=== PATIENT | female | born 1945 | race Caucasian/White ===

== ENCOUNTER 2017-02-19 14:31 | Day surgery (SDC) | payer OTHER ==
[2017-02-19 14:43] VITALS: BMI 21.9
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
[2017-02-19 16:33] LABS: BASOPHIL 1.6 % (0-2.0); EOSINOPHIL 2.6 % (0-4.5); MCH 29.7 pg (25.7-33.7); MCHC 33.3 g/dl (32.0-36.0); MEAN CELL VOLUME 89.4 fl (80-96); MEAN PLT VOLUME 8.6 fl (7.5-11.1); NEUTROPHILS 62.9 % (42.8-82.8); PLATELET COUNT 353 K/MM3 (134-434); RDW 16.7 % (11.6-15.6); WHITE BLOOD COUNT 8.1 K/mm3 (4.0-10.0)
[2017-02-19 17:26] LABS: INR 0.91 (0.82-1.09)
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
[2017-02-19] MEDS ORDERED: LIDOCAINE HCL 1%, 10 MG/ML (20ML VIAL) ONE (17:48)
[2017-02-19] MEDS ORDERED: HEPARIN NA (PORCINE) 5,000 UNITS/ML 1ML VIAL ONE (17:49)
[2017-02-19] MEDS ORDERED: MIDAZOLAM HCL 2 MG/2 ML SINGLE DOSE VIAL ONE (17:59)
[2017-02-19] MEDS ORDERED: PROPOFOL 20 ML ONE (18:01)
--- NOTE | 2017-02-19 18:47 | HP ---
[facility] H - Chief Complaint History of Present Illness: 71 yo woman ESRD on HD with right sided Permacath which is not functioning for dialysis. She requires catheter change. History Source: Patient Limitations to Obtaining History: No Limitations - Past Medical History Allergies/Adverse Reactions: Allergies Allergy/AdvReac Type Severity Reaction Status Date / Time codeine Allergy Verified 02/19/17 14:43 Cardiovascular: Yes: HTN Renal/: Yes: Renal Failure, Hemodialysis Endocrine: Yes: Diabetes Mellitus - Current Medications Current Medications: Home Medications Medication Instructions Recorded Allopurinol [Zyloprim -] 100 mg PO DAILY 02/19/17 Glipizide 5 mg PO DAILY 02/19/17 Losartan Potassium 50 mg PO DAILY 02/19/17 Metoprolol Tartrate 50 mg PO BID 02/19/17 Nifedipine ER [Procardia Xl -] 30 mg PO BID 02/19/17 Satellite Physical Exam - Physical Examination Vital Signs: Vital Signs Period Temp Pulse Resp BP Sys/James Pulse Ox Last 24 Hr 98.1 F-98.2 F 73-82 18-20 144-145/79-92 99-99 General Appearance: Alert & Oriented x3 ENT: Clear Lung: Clear to auscultation Heart: Regular rate & rhythm Abdomen: Soft Extremities: No edema Satellite Impression/Plan - Impression/Plan Impression: ESRD on HD. Malfunction of hemodialysis catheter Operative Procedure: Replacement of Permacath Date to be Performed: 02/19/17
[2017-02-19 19:00] LABS: ALBUMIN 3.6 g/dl (3.4-5.0); ANION GAP 13 (8-16); BILIRUBIN,TOTAL 0.3 mg/dL (0.2-1.0); CALCIUM 9.9 mg/dL (8.5-10.1); CO2 23 mmol/L (21-32); GLUCOSE,RANDOM 69 mg/dL (74-106); SGPT/ALT 18 U/L (12-78); TOT PROT 7.7 g/dl (6.4-8.2)
[2017-02-19 19:02] LABS: SGOT/AST 10 U/L (15-37)
[2017-02-19] MEDS ORDERED: ceFAZolin SODIUM 1 GM VIAL ONE (19:03)
[2017-02-19 19:05] LABS: ALK PHOS 126 U/L (45-117)
[2017-02-19] MEDS ORDERED: LIDOCAINE HCL/PF 2% SDV 5ML VIAL ONE (19:06)
[2017-02-19 19:07] LABS: CREATININE 7.7 mg/dL (0.55-1.02)
[2017-02-19] MEDS ORDERED: ceFAZolin SODIUM 1 GM VIAL IVPB ONE (19:08)
[2017-02-19] MEDS ORDERED: LIDOCAINE HCL 1%, 10 MG/ML (50 mL VIAL) IJ ONE ×2 (19:14)
[2017-02-19] MEDS ORDERED: POVIDONE-IODINE OINTMENT 10% - 28.4 GM TUBE ONE (19:18)
[2017-02-19] MEDS ORDERED: POVIDONE-IODINE OINTMENT 10% - 28.4 GM TUBE TP ONE (19:21)
[2017-02-19] MEDS ORDERED: PHENYLEPHRINE HCL 10 MG/1 ML SINGLE DOSE VIAL ONE (19:25)
--- NOTE | 2017-02-19 19:35 | OP ---
Operative Note - Note: Operative Date: 02/19/17 Pre-Operative Diagnosis: Malfunction Permacath Operation: Replacement of Permacath with balloon disruption of fibrin sheath Findings: Permacath with fibrin sheath in right atrium Implants: 23 cm Permacth, tip in SVC/RA junction Post-Operative Diagnosis: Same as Pre-op Surgeon: Seth Garsia Anesthesiologist/FURRIER APPRENTICE: Antonio Mcpherson Anesthesia: Fractional
[2017-02-19] MEDS ORDERED: ACETAMINOPHEN 325 MG TABLET (FP) PO PRN (19:36)
[2017-02-19] MEDS ORDERED: ONDANSETRON 4 MG/2 ML VIAL IVPUSH PRN (19:40)
[2017-02-19] MEDS ORDERED: ACETAMINOPHEN 325 MG TABLET (FP) ONE ×2 (20:20)
[2017-02-19 20:52] VITALS: BP 172/93; PULSE 74; TEMP 97.6
--- NOTE | 2017-02-21 09:28 | PATH ---
Surgical Pathology Report Patient Name: SAMMY WHEELER Med. Rec. #: [id number] /Age/Gender: 1945 (Age: 71) / F Account: [id number] Location: [facility] SURGICAL Taken: 02/19/2017 Received: 02/20/2017 Reported: 02/21/2017 Physicians: Seth Garsia M.D. 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 Electronically Signed Ghulam Abrams M.D. Gross Description Received fresh labeled "old permacath," is a 19 cm in length double lumen catheter. Separately received within the same container is a 22 cm in length portion of tubing. No soft tissue is present. No sections are submitted, gross only. 02/20/2017 saudi02/20/2017
--- NOTE | 2017-02-21 09:49 | EKG ---
Test Reason : Blood Pressure : / mmHG Vent. Rate : 077 BPM Atrial Rate : 077 BPM P-R Int : 142 ms QRS Dur : 082 ms QT Int : 404 ms P-R-T Axes : 063 047 070 degrees QTc Int : 457 ms NORMAL SINUS RHYTHM NORMAL ECG NO PREVIOUS ECGS AVAILABLE Confirmed by RADHAMES JOLLEY MD ([id number]) on 02/21/2017 9:49:28 AM Referred By: Confirmed By:RADHAMES JOLLEY MD
--- NOTE | 2017-02-23 22:42 | OP ---
DATE OF OPERATION: 02/19/2017 SURGEON: Seth Joyce M.D. PROCEDURE: Replacement of PermCath with balloon, disruption of fibrin sheath. PREOPERATIVE DIAGNOSIS: Malfunction of PermCath. POSTOPERATIVE DIAGNOSIS: Malfunction of PermCath. ANESTHESIA: Fractional. ANESTHESIOLOGIST: Antonio Mcpherson M.D. OPERATIVE FINDINGS: The previous PermCath tip was in the distal right atrium. After replacement, there appeared to be evidence of fibrin sheath around the catheter. OPERATIVE PROCEDURE: Following routine patient identification with side and site verification, intravenous sedation was established. The right chest was prepped with Betadine. The catheter was also prepped copiously with Betadine. Timeout was performed. 1% Xylocaine was infiltrated at the exit site of the catheter and the subcutaneous cuff was freed with sharp dissection. A stiff wire was passed through the lumen of the catheter, and the old catheter was removed. A new 19-cm tip to cuff length catheter was then advanced over the wire from the tip position at the juncture of the superior vena cava right atrium. Aspiration of the catheter was difficult with only intermittent flow. Therefore number 5 Marbin catheter was advanced to one of the lumens of the catheter and inflated. The catheter and balloon were then moved in and out of the patient to break up the fibrin sheath around the catheter. After removal of the balloon, the tip was repositioned in a similar location, and now there was free flow of blood with aspiration with a 20-mL syringe from both lumens. Catheter was filled with saline and then heparin solution and sutured to the exit site with 3-0 nylon. Sterile dressings were applied. Patient was taken to the recovery room in stable condition. SETH JOYCE M.D. STEVEN/[id number]
== END 2017-02-19 21:00 | disposition home or self-care (01) ==
LOC: JER 14:31 → JASU-SURG 19:39 → J8W 20:44 → JASU-SURG 21:00
PROVIDERS: ATTEND Surgery
PROC: 027V3ZZ Dilation of Superior Vena Cava, Percutaneous Approach (ICD-10-PCS; 2017-02-19)
PROC: 0J2TXYZ Change Other Device in Trunk Subcutaneous Tissue and Fascia, External Approach (ICD-10-PCS; principal; 2017-02-19 18:30)
DX: T82.898A Other specified complication of vascular prosthetic devices, implants and grafts, initial encounter (principal); I12.0 Hypertensive chronic kidney disease with stage 5 chronic kidney disease or end stage renal disease; N18.6 End stage renal disease; Z99.2 Dependence on renal dialysis
CPT/HCPCS: 36578; 36902; C1750; 36415; 71020-TC; 76000-TC; 80053; 85025; 85610; 86850; 86900; 86901; 88300-TC; 93005; 93010; 94760; 99283-25; J1644

== ENCOUNTER 2017-10-17 17:12 | Inpatient (IN) | payer OTHER ==
--- NOTE | 2017-10-17 17:32 | PDOC ---
Rapid Medical Evaluation Time Seen by Provider: 10/17/17 17:29 Medical Evaluation: Allergies Allergy/AdvReac Type Severity Reaction Status Date / Time codeine Allergy Verified 02/19/17 14:43 I have performed a brief in-person evaluation of this patient. The patient presents with a chief complaint of: perma cath of right chest was replaced early today. went to dialysis this afternoon and the catheter was not working. She did not have dialysis today Pertinent physical exam findings: catheter in right anterior chest I have ordered the following: labs The patient will proceed to the ED for further evaluation. Discharge Disposition - Diagnosis Dialysis catheter clot or failure - Referrals - Patient Instructions - Post Discharge Activity
[2017-10-17 17:52] LABS: BASO % 0.9 % (0-2.0); EOS % 2.1 % (0-4.5); HEMATOCRIT 30.8 % (32.4-45.2); HEMOGLOBIN 10.3 GM/dL (10.7-15.3); LYMPH % 13.5 % (8-40); MCH 31.2 pg (25.7-33.7); MCHC 33.5 g/dl (32.0-36.0); MEAN CELL VOLUME 93.1 fl (80-96); MONO % 9.5 % (3.8-10.2); PLATELET COUNT 296 K/MM3 (134-434); RBC 3.31 M/mm3 (3.60-5.2); RDW 16.2 % (11.6-15.6); WHITE BLOOD COUNT 6.2 K/mm3 (4.0-10.0)
--- NOTE | 2017-10-17 18:02 | PDOC ---
History of Present Illness - General History Source: Patient Exam Limitations: No Limitations - History of Present Illness Initial Comments: 10/17/17 18:24 The patient is a 72 year old female, with a significant PMH of CKD on dialysis ( M/W/F), HTN, DM, hypercholesterolemia, who presents to the emergency department with permacath malfunction. The patient states she went for dialysis this morning at [facility] but was unable to complete the dialysis as her permacath was not functioning properly. The patient states that the [facility] dialysis center sent her to have her permacath fixed at the [facility] in the [place] by Dr. West. The patient states she returned to dialysis but the permacath was still not functioning so she was sent to the ED for further evaluation. The patient states her permacath was originally placed by a doctor in [place] but she is unsure of the doctors name. The patient denies chest pain, shortness of breath, headache and dizziness. Denies fever, chills, nausea, vomit, diarrhea and constipation. Denies dysuria, frequency, urgency and hematuria. Allergies: codeine Past surgical history: hysterectomy Social history: No reported Mill Manager: Dr. Mahnaz Ambriz <Barney Arias - Last Filed: 10/17/17 19:05> <Shad Weber - Last Filed: 10/17/17 19:53> - General Chief Complaint: Pain, Acute Stated Complaint: CATHETER PROBLEM Time Seen by Provider: 10/17/17 17:29 Past History <Barney Arias - Last Filed: 10/17/17 19:05> - Past Medical History CVA: No COPD: No DVT: No Diabetes: Yes Dialysis: Yes (m-w-f) HTN: Yes Hypercholesterolemia: Yes - Surgical History Appendectomy: Yes Cholecystectomy: Yes - Immunization History Immunization Up to Date: Yes - Suicide/Smoking/Psychosocial Hx Smoking History: Never smoked Hx Alcohol Use: No Drug/Substance Use Hx: No Substance Use Type: None <Shad Weber - Last Filed: 10/17/17 19:53> - Past Medical History Allergies/Adverse Reactions: Allergies Allergy/AdvReac Type Severity Reaction Status Date / Time codeine Allergy Verified 10/17/17 17:30 Home Medications: Ambulatory Orders Allopurinol [Zyloprim -] 100 mg PO DAILY 02/19/17 Glipizide 5 mg PO DAILY 02/19/17 Losartan Potassium 100 mg PO DAILY 02/19/17 Metoprolol Tartrate 50 mg PO BID 02/19/17 Nifedipine ER [Procardia Xl -] 30 mg PO BID 02/19/17 Calcium Acetate [Calphron] 3 tab PO TID 10/17/17 Folic Acid/B Cplx/C/Selen/Zinc [Dialyvite 3,000 Tablet] 1 each PO DAILY Lactobacillus Acidophilus [Probiotic] 1 each PO DAILY 10/17/17 Review of Systems - Review of Systems Comments:: 10/17/17 18:25 A complete review of 10 out of 10 review of systems is taken and is negative apart from what is previously mentioned below and in the HPI. <Barney Arias - Last Filed: 10/17/17 19:05> *Physical Exam - Vital Signs Last Vital Signs Temp Pulse Resp BP Pulse Ox 98.3 F 71 16 131/100 99 10/17/17 17:31 10/17/17 17:31 10/17/17 17:31 10/17/17 17:31 10/17/17 17:31 - Physical Exam Comments: 10/17/17 19:05 Vitals: Triage vital signs reviewed General Appearance: No acute distress, well nourished, well developed Head: Atraumatic Eyes: Pupils equal reactive round, extraocular movement intact Neck: Supple; No nuchal rigidity Chest Wall: Nontender Cardiac: Regular rate and rhythm, no murmurs, no rubs, no gallops Lungs: Clear to auscultation bilateral, good air movement bilaterally Abdomen: Soft, nondistended, normal bowel sounds, nontender to palpation Rectal: Exam deferred Extremities: Full range of motion to all extremities, no cyanosis, clubbing, or edema Skin: Warm and dry, no rashes or lesions, no rash, no petechiae Neuro: AOX3; Cranial Nerves 2-12 grossly intact, Strength intact to all extremities, Sensation intact to all extremities, Psych: Normal mood, normal affect <Barney Arias - Last Filed: 10/17/17 19:05> - Vital Signs Last Vital Signs Temp Pulse Resp BP Pulse Ox 98.3 F 71 16 131/100 99 10/17/17 17:31 10/17/17 17:31 10/17/17 17:31 10/17/17 17:31 10/17/17 17:31 <Shad Weber - Last Filed: 10/17/17 19:53> Heart Score/ECG Review - ECG Impressions Comment:: EKG performed at 1939. Demonstrates sinus rhythm 68 bpm. NH 134, QRS 78, QTC 431. No evidence of hyperkalemia. No PTs no prolonged NH no flattened P waves. No ST elevations or T-wave inversions Interpreted by me. <Shad Weber - Last Filed: 10/17/17 19:53> ED Treatment Course - LABORATORY CBC & Chemistry Diagram: 10/17/17 17:46 10/17/17 17:46 - ADDITIONAL ORDERS Additional order review: Laboratory Results 10/17/17 17:46 Sodium 135 L Potassium 5.3 H Chloride 103 Carbon Dioxide 19 L Anion Gap 13 BUN 70 H Creatinine 9.5 H* Creat Clearance w eGFR 4.04 Random Glucose 198 H Calcium 8.9 Total Bilirubin 0.6 D AST 12 L ALT 16 Total Protein 6.5 Albumin 2.9 L 10/17/17 17:46 RBC 3.31 L MCV 93.1 MCHC 33.5 RDW 16.2 H MPV 8.0 Neutrophils % 74.0 Lymphocytes % 13.5 D Monocytes % 9.5 Eosinophils % 2.1 Basophils % 0.9 <Barney Arias - Last Filed: 10/17/17 19:05> - LABORATORY CBC & Chemistry Diagram: 10/17/17 17:46 10/17/17 17:46 - ADDITIONAL ORDERS Additional order review: 10/17/17 17:46 RBC 3.31 L MCV 93.1 MCHC 33.5 RDW 16.2 H MPV 8.0 Neutrophils % 74.0 Lymphocytes % 13.5 D Monocytes % 9.5 Eosinophils % 2.1 Basophils % 0.9 <Shad Weber - Last Filed: 10/17/17 19:53> Medical Decision Making - Medical Decision Making 10/17/17 18:47 The patient is a 72 year old female, with a significant PMH of CKD on dialysis ( M/W/F), HTN, DM, hypercholesterolemia, who presents to the emergency department with permacath malfunction. Plan: Labs Call placed to Dr. Leon. Case discussed. Call placed to Dr. Diaz. Pending call back. <Barney Arias - Last Filed: 10/17/17 19:05> - Medical Decision Making Nonfunctioning dialysis Port-A-Cath. Case discussed with Dr. Leon. We'll flush ED with Cathflo. Patient will be observed overnight. Patient's labor gang supervisor Dr. Santana aware of case Tomorrow morning Dr. Leon will replace Port-A-Cath patient will then be dialyzed after Patient is to be made nothing by mouth after midnight. Preop labs. <Shad Weber - Last Filed: 10/17/17 19:53> *DC/Admit/Observation/Transfer - Attestations Scribe Attestion: 10/17/17 18:26 Documentation prepared by Barney Arias, acting as hospital medical biller for Shad Weber MD. <Barney Arias - Last Filed: 10/17/17 19:05> - Discharge Dispostion Decision to Admit order: Yes <Shad Weber - Last Filed: 10/17/17 19:53> Diagnosis at time of Disposition: Dialysis catheter clot or failure - Referrals Referrals: ON STAFF,NOT [Primary Care Provider] -
[2017-10-17 18:21] LABS: ALBUMIN 2.9 g/dl (3.4-5.0); ANION GAP 13 (8-16); BILIRUBIN,TOTAL 0.6 mg/dL (0.2-1.0); BLOOD UREA NITROGEN 70 mg/dL (7-18); CALCIUM 8.9 mg/dL (8.5-10.1); CHLORIDE 103 mmol/L (98-107); CO2 19 mmol/L (21-32); GLUCOSE,RANDOM 198 mg/dL (74-106); POTASSIUM 5.3 mmol/L (3.5-5.1); SGOT/AST 12 U/L (15-37); SGPT/ALT 16 U/L (12-78); SODIUM 135 mmol/L (136-145); TOT PROT 6.5 g/dl (6.4-8.2)
[2017-10-17 18:23] LABS: CREATININE 9.5 mg/dL (0.55-1.02)
[2017-10-17 18:24] LABS: ALK PHOS 95 U/L (45-117)
[2017-10-17] MEDS ORDERED: ALTEPLASE 2 MG VIAL IVPUSH ONE (19:09)
[2017-10-17] MEDS ORDERED: ALTEPLASE 2 MG VIAL ONE (19:35)
--- NOTE | 2017-10-17 19:46 | HP ---
CHIEF COMPLAINT: Malfunctioning Dialysis access PCP:Not on Staff HISTORY OF PRESENT ILLNESS: 72F with PMH of ESRD on HD, (M,W,F) HTN, DM, gout, presents to the hospital since she was unable to be dialyzed due to access failure. Last dialysis was Friday 2 days ago. Patient reported to her dialysis center at 630am and she was unable to be dialyzed due to access failure. According to the patient and her , she was sent to an outpatient interventional radiology center to have the right infraclavicular catheter fixed. It was an eventually switched over a wire and at around 415pm today she went back to the dialysis center and she was still unable to be dialyzed because one of the ports are still not working. She was transferred to [facility] for evaluation by a surgeon and real estate listing consultant. She is annoyed she has to be admitted but otherwise feels well and she denies nausea, vomiting, fevers, chills, chest pain, shortness of breath , urinary, and gastrointestinal symptoms. ER course was notable for: (1)Cath sylvie (2)Labs CXR (3)contacted vascular surgery Recent Travel: Denies PAST MEDICAL HISTORY:As above PAST SURGICAL HISTORY:hysterectomy appendectomy cholecystectomy s/p SBR with ileostomy s/p reversal peritoneal dialysis catheter insertion and removal Social History: Smoking:Denies Alcohol:Denies Drugs: Denies Allergies codeine Allergy (Verified 10/17/17 17:30) HOME MEDICATIONS: Home Medications Medication Instructions Recorded Allopurinol [Zyloprim -] 100 mg PO DAILY 02/19/17 Glipizide 5 mg PO DAILY 02/19/17 Losartan Potassium 100 mg PO DAILY 02/19/17 Metoprolol Tartrate 50 mg PO BID 02/19/17 Nifedipine ER [Procardia Xl -] 30 mg PO BID 02/19/17 Calcium Acetate [Calphron] 3 tab PO TID 10/17/17 Folic Acid/B Cplx/C/Selen/Zinc 1 each PO DAILY 10/17/17 [Dialyvite 3,000 Tablet] Lactobacillus Acidophilus 1 each PO DAILY 10/17/17 [Probiotic] REVIEW OF SYSTEMS CONSTITUTIONAL: Absent: fever, chills, diaphoresis, generalized weakness, malaise, loss of appetite, weight change HEENT: Absent: rhinorrhea, nasal congestion, throat pain, throat swelling, difficulty swallowing, mouth swelling, ear pain, eye pain, visual changes CARDIOVASCULAR: Absent: chest pain, syncope, palpitations, irregular heart rate, lightheadedness , peripheral edema RESPIRATORY: Absent: cough, shortness of breath, dyspnea with exertion, orthopnea, wheezing, stridor, hemoptysis GASTROINTESTINAL: Absent: abdominal pain, abdominal distension, nausea, vomiting, diarrhea, constipation, melena, hematochezia GENITOURINARY: Absent: dysuria, frequency, urgency, hesitancy, hematuria, flank pain, genital pain MUSCULOSKELETAL: Absent: myalgia, arthralgia, joint swelling, back pain, neck pain SKIN: Absent: rash, itching, pallor HEMATOLOGIC/IMMUNOLOGIC: Absent: easy bleeding, easy bruising, lymphadenopathy, frequent infections ENDOCRINE: Absent: unexplained weight gain, unexplained weight loss, heat intolerance, cold intolerance NEUROLOGIC: Absent: headache, focal weakness or paresthesias, dizziness, unsteady gait, seizure, mental status changes, bladder or bowel incontinence PSYCHIATRIC: Absent: anxiety, depression, suicidal or homicidal ideation, hallucinations. PHYSICAL EXAMINATION Vital Signs - 24 hr 10/17/17 10/17/17 17:31 18:30 Temperature 98.3 F Pulse Rate 71 Respiratory 16 Rate Blood Pressure 131/100 Blood Pressure 159/90 [Right Arm] O2 Sat by Pulse 99 Oximetry (%) GENERAL: Awake, alert, and fully oriented, in no acute distress. HEAD: Normal with no signs of trauma. EYES: Pupils equal, round and reactive to light, extraocular movements intact LUNGS: Breath sounds equal, clear to auscultation bilaterally HEART: Regular rate and rhythm, normal S1 and S2 without murmur ABDOMEN: Soft, nontender, not distended, normoactive bowel sounds MUSCULOSKELETAL: Normal range of motion at all joints. No CVA tenderness. Right chest with tunnelled dialysis catheter C/D/I UPPER EXTREMITIES: warm, well-perfused. LOWER EXTREMITIES:warm, well-perfused. No calf tenderness. No peripheral edema. NEUROLOGICAL: Cranial nerves II-XII grossly intact. PSYCHIATRIC: Cooperative. Good eye contact. Appropriate mood and affect. Laboratory Results - last 24 hr 10/17/17 10/17/17 17:46 17:46 WBC 6.2 RBC 3.31 L Hgb 10.3 L D Hct 30.8 L MCV 93.1 MCH 31.2 MCHC 33.5 RDW 16.2 H Plt Count 296 MPV 8.0 Neutrophils % 74.0 Lymphocytes % 13.5 D Monocytes % 9.5 Eosinophils % 2.1 Basophils % 0.9 Sodium 135 L Potassium 5.3 H Chloride 103 Carbon Dioxide 19 L Anion Gap 13 BUN 70 H Creatinine 9.5 H* Creat Clearance w eGFR 4.04 Random Glucose 198 H Calcium 8.9 Total Bilirubin 0.6 D AST 12 L ALT 16 Alkaline Phosphatase 95 Total Protein 6.5 Albumin 2.9 L ASSESSMENT/PLAN: 72F with multiple medical problems presents due to failed dialysis access and unable to be dialyzed. failed dialysis access/ESRD on HD: Dr. Leon to see patient tomorrow and repair Dr. Santana to see patient tomorrow for dialysis after catheter repair failed cath-sylvie trial NPO past midnight for OR HTN: Restart Home meds-Metoprolol Losartan Procardia Monitor BP DM: Hold glipizide ISS fingersticks ACHS Gout: Restart allopurinol FEN: No IVF Slightly hyperkalemic will repeat labs in AM NPO past midnight then renal diet PPx: HSQ no GI PPx indicated No PT consult needed Case discussed with attending Dr. Eng Visit type - Emergency Visit Emergency Visit: Yes Care time: The patient presented to the Emergency Department on the above date and was hospitalized for further evaluation of their emergent condition. - New Patient This patient is new to me today: Yes Date on this admission: 10/17/17 - Critical Care Critical Care patient: No Hospitalist Screening - Colonoscopy Questionnaire Colonoscopy Questionnaire: Colonoscopy Questionnaire - Patient: 50 - 75 years old and never had a screening colonoscopy: No History of colon or rectal polyps, or CA: No History of IBD, Crohn's disease or UC: No History of abdominal radiation therapy as a child: No - Relative: 1 with colon or rectal CA, or polyps at age 60 or younger: No Colon or rectal CA diagnosed at age 45 or younger: No Multiple relatives with colon or rectal CA: No - Outcome: Screening Result: Negative Screen
[2017-10-17 20:19] LABS: INR 0.93 (0.82-1.09); PROTHROMBIN TIME (PATIENT) 10.5 SEC (9.7-13.0)
[2017-10-17] MEDS ORDERED: METOPROLOL TARTRATE 50 MG TABLET (FP) PO SCH (22:00)
[2017-10-17] MEDS ORDERED: NIFEdipine E.R. 30 MG TABLET (FP) PO SCH (22:00)
[2017-10-18] MEDS: HEPARIN NA (PORCINE) 5,000 UNITS/ML 1ML VIAL SQ SCH ×2 (00:07→05:38)
[2017-10-18 00:54] VITALS: BMI 21.8
[2017-10-18] MEDS ORDERED: NIFEdipine E.R 60 MG TABLET (UD) PO ONE (02:36)
--- NOTE | 2017-10-18 04:17 | PN ---
Teaching Attending Note Name of Resident: Keegan Benavides ATTENDING PHYSICIAN STATEMENT I saw and evaluated the patient. I reviewed the resident's note and discussed the case with the resident. I agree with the resident's findings and plan as documented. SUBJECTIVE: OBJECTIVE: ASSESSMENT AND PLAN: 72F with multiple medical problems presents due to failed dialysis access and unable to be dialyzed. failed dialysis access/ESRD on HD: Dr. Leon to see patient tomorrow and repair Dr. Santana to see patient tomorrow for dialysis after catheter repair failed cath-sylvie trial NPO past midnight for OR HTN: Restart Home meds-Metoprolol Losartan Procardia Monitor BP give 60mg stat nifidipine due elevated BP 210/100 DM: Hold glipizide ISS fingersticks ACHS Gout: Restart allopurinol
[2017-10-18] MEDS ORDERED: INSULIN SLIDING SCALE (NOVOLOG) 1 VIAL SQ SCH ×2 (07:00→16:30)
[2017-10-18 08:32] LABS: CHLORIDE 104 mmol/L (98-107); POTASSIUM 5.7 mmol/L (3.5-5.1); SODIUM 136 mmol/L (136-145)
[2017-10-18 09:07] LABS: ANION GAP 15 (8-16); BLOOD UREA NITROGEN 74 mg/dL (7-18); CALCIUM 9.3 mg/dL (8.5-10.1); CO2 17 mmol/L (21-32); GLUCOSE,RANDOM 105 mg/dL (74-106)
--- NOTE | 2017-10-18 09:21 | EKG ---
Test Reason : Blood Pressure : / mmHG Vent. Rate : 068 BPM Atrial Rate : 068 BPM P-R Int : 134 ms QRS Dur : 078 ms QT Int : 406 ms P-R-T Axes : 013 036 049 degrees QTc Int : 431 ms SINUS RHYTHM WITH OCCASIONAL PREMATURE VENTRICULAR COMPLEXES OTHERWISE NORMAL ECG WHEN COMPARED WITH ECG OF 19-FEB-2017 18:11, PREMATURE VENTRICULAR COMPLEXES ARE NOW PRESENT Confirmed by MED LOW, WILLIAM ([id number]) on 10/18/2017 9:21:08 AM Referred By: Confirmed By:WILLIAM JOVEL MD
[2017-10-18 09:29] LABS: CREATININE 10.5 mg/dL (0.55-1.02)
[2017-10-18] MEDS ORDERED: LOSARTAN POTASSIUM 50 MG TABLET (FP) PO SCH (10:00)
[2017-10-18] MEDS ORDERED: ALLOPURINOL 100 MG TABLET (FP) PO SCH (10:00)
--- NOTE | 2017-10-18 10:11 | CONSULT ---
Consult Consult Specialty:: Nephrology ( Pb/Ronaldo) Reason for Consultation:: ESRD patient in need of dialysis with malfunctioning dialysis catheter - History of Present Illness Chief Complaint: The patient is a 72 year old female, with a significant PMH of CKD on dialysis (M/W/F), HTN, DM, hypercholesterolemia, was sent to the emergency department with permacath malfunction. The patient came for dialysis yesterday morning at [facility] but was unable to complete the dialysis as her permacath was not functioning properly. The patient had a new catheter placed at an access center in [place], but that also failed to function. The patient is a visitor from [place], [place] and has had AV access failures in the past. - History Source History Provided By: Patient Limitations to Obtaining History: No Limitations - Past Medical History Cardio/Vascular: Yes: HTN Renal/: Yes: Renal Failure, Hemodialysis ...: No Endocrine: Yes: Diabetes Mellitus - Alcohol/Substance Use Hx Alcohol Use: No - Smoking History Smoking history: Never smoked Home Medications - Allergies Allergies/Adverse Reactions: Allergies Allergy/AdvReac Type Severity Reaction Status Date / Time codeine Allergy Verified 10/17/17 17:30 - Home Medications Home Medications: Ambulatory Orders Allopurinol [Zyloprim -] 100 mg PO DAILY 02/19/17 Glipizide 5 mg PO DAILY 02/19/17 Losartan Potassium 100 mg PO DAILY 02/19/17 Metoprolol Tartrate 50 mg PO BID 02/19/17 Nifedipine ER [Procardia Xl -] 30 mg PO BID 02/19/17 Calcium Acetate [Calphron] 3 tab PO TID 10/17/17 Folic Acid/B Cplx/C/Selen/Zinc [Dialyvite 3,000 Tablet] 1 each PO DAILY Lactobacillus Acidophilus [Probiotic] 1 each PO DAILY 10/17/17 Review of Systems - Review of Systems Constitutional: denies: Fever, Loss of Appetite HENT: denies: Difficult Swallowing Neck: denies: Decreased ROM Cardiovascular: denies: Chest Pain, Palpitations, Shortness of Breath Respiratory: denies: Cough Gastrointestinal: denies: Abdominal Pain Genitourinary: denies: Flank Pain Musculoskeletal: denies: Back Pain Integumentary: denies: Change in Color Neurological: denies: Change in Speech Endocrine: denies: Excessive Sweating, Increased Hunger Physical Exam Vital Signs: Vital Signs Temperature 98.3 F 10/18/17 06:00 Pulse Rate 80 10/18/17 06:00 Respiratory Rate 20 10/18/17 06:00 Blood Pressure 142/74 10/18/17 06:00 O2 Sat by Pulse Oximetry (%) 100 10/18/17 00:00 Constitutional: Yes: Well Nourished, Anxious Eyes: Yes: Conjunctiva Clear HENT: Yes: Normocephalic Neck: Yes: Trachea Midline Cardiovascular: Yes: Regular Rate and Rhythm, S1, S2 Respiratory: Yes: CTA Bilaterally Gastrointestinal: Yes: Normal Bowel Sounds, Soft Renal/: No: CVA Tenderness - Left, CVA Tenderness - Right Edema: No Labs: CBC, BMP 10/17/17 17:46 10/18/17 06:15 Problem List - Problems (1) ESRD (end stage renal disease) Code(s): N18.6 - END STAGE RENAL DISEASE (2) Dialysis catheter clot or failure Code(s): HDX6847 - (3) DM2 (diabetes mellitus, type 2) Code(s): E11.9 - TYPE 2 DIABETES MELLITUS WITHOUT COMPLICATIONS (4) Hypertension Code(s): I10 - ESSENTIAL (PRIMARY) HYPERTENSION Assessment/Plan The patient is a 72 year old female, with a significant PMH of CKD on dialysis with HTN, DM, hypercholesterolemia. Admitted for malfunctioning Permacath. Could not get her routine dialysis yesterday. Hyperkalemia will be corrected by dialysis. Will have new Permacath placed today. Dialysis to be done after the same. If the catheter could be used successfully, the patient may be discharged home after today's dialysis. Thank you. Will follow with you. Mahnaz Ambriz MD
[2017-10-18] MEDS ORDERED: EPOETIN ALFA 10,000 UNIT/1 ML VIAL SQ ONE ×2 (10:19→12:02)
[2017-10-18] MEDS ORDERED: ONDANSETRON 4 MG/2 ML VIAL IVPUSH PRN ×2 (10:39→12:02)
[2017-10-18] MEDS ORDERED: SODIUM CHLORIDE 1,000 ML IV SCH ×2 (10:45→12:02)
[2017-10-18] MEDS ORDERED: LIDOCAINE HCL 1%, 10 MG/ML (20ML VIAL) ONE ×2 (10:50→10:59)
[2017-10-18] MEDS ORDERED: HEPARIN NA (PORCINE) 5,000 UNITS/ML 1ML VIAL ONE (10:50)
[2017-10-18] MEDS ORDERED: MIDAZOLAM HCL 2 MG/2 ML SINGLE DOSE VIAL ONE (10:54)
[2017-10-18] MEDS ORDERED: PROPOFOL 20 ML ONE ×3 (10:55)
[2017-10-18] MEDS ORDERED: SUCCINYLCHOLINE CHLORIDE 200 MG/10 ML VIAL ONE (10:56)
[2017-10-18] MEDS ORDERED: ceFAZolin SODIUM 1 GM VIAL IVPB ONE (11:25)
[2017-10-18] MEDS ORDERED: ceFAZolin SODIUM 1 GM VIAL ONE (11:36)
--- NOTE | 2017-10-18 11:57 | OP ---
Operative Note - Note: Operative Date: 10/18/17 Pre-Operative Diagnosis: malfunctioning permacath Operation: permacath exchange Post-Operative Diagnosis: Same as Pre-op Surgeon: Sarabjit Leon Anesthesia: Fractional Estimated Blood Loss (mls): 5 Operative Report Dictated: Yes
--- NOTE | 2017-10-18 13:06 | OP ---
DATE OF OPERATION: 10/18/2017 PREOPERATIVE DIAGNOSIS: Malfunctioning right internal jugular PermCath. POSTOPERATIVE DIAGNOSIS: Malfunctioning right internal jugular PermCath. PROCEDURE: PermCath exchange. SURGEON: Sarabjit Marroquin DO ANESTHESIA: Fractional. BLOOD LOSS: 5 mL The patient is a 72-year-old female who comes in with a malfunctioning PermCath. She is traveling here from [place]. She came into the ER yesterday and stayed overnight. Patient has a malfunctioning right IJ PermCath. Patient was brought up to the operating room. Patient was consented for the procedure, understanding all risks, benefits, and alternatives, and was then taken to the operating room. DESCRIPTION OF PROCEDURE: Once in the operating room, she was laid on the operating table in supine manner, and the area of the right neck and chest were prepped and draped in a sterile surgical manner. We then went ahead and placed a 0.035 floppy guidewire under fluoroscopy. We then went ahead and injected 10 mL of lidocaine 1% around the cuff of the catheter. We then used a mosquito clamp and dissected the cuff away from the skin. The catheter was freed. We then removed the catheter. We then went ahead and used new sterile gloves for sterility. We then went ahead and placed a new 23 PermCath under fluoroscopy over the guidewire. Guidewire was removed. Catheter was right outside the right atrium. The curve of the catheter was good. We then jadyn back on each port of the catheter, and there was good flow. Heparinized saline was injected, 2000 units of IV heparin was injected into each port. We then went ahead and used 4-0 Biosyn in [address] at the exit site, 3-0 nylon used, and the catheter was attached to the skin. BIOPATCH, 4 x 4, and Tegaderms were placed. The patient tolerated the procedure with no complication. The patient transferred to the PACU in stable condition, where a chest x-ray will be ordered. SARABJIT MARROQUIN DO ROAD DESIGN DRAFTSPERSON/[id number]
[2017-10-18] MEDS ORDERED: HEPARIN NA (PORCINE) 5,000 UNITS/ML 1ML VIAL SQ SCH (14:00)
--- NOTE | 2017-10-18 14:27 | PN ---
Progress Note (short form) - Note Progress Note: Vital Signs Temperature 97.8 F 10/18/17 13:25 Pulse Rate 78 10/18/17 14:00 Respiratory Rate 18 10/18/17 14:00 Blood Pressure 119/74 10/18/17 14:00 O2 Sat by Pulse Oximetry (%) 95 10/18/17 12:45 GENERAL: Awake, alert, and fully oriented, in no acute distress. HEAD: Normal with no signs of trauma. EYES: Pupils equal, round and reactive to light, extraocular movements intact LUNGS: Breath sounds equal, clear to auscultation bilaterally HEART: Regular rate and rhythm, normal S1 and S2 without murmur ABDOMEN: Soft, nontender, not distended, normoactive bowel sounds MUSCULOSKELETAL: Normal range of motion at all joints. No CVA tenderness. Right chest with tunnelled dialysis catheter C/D/I UPPER EXTREMITIES: warm, well-perfused. LOWER EXTREMITIES:warm, well-perfused. No calf tenderness. No peripheral edema. NEUROLOGICAL: Cranial nerves II-XII grossly intact. PSYCHIATRIC: Cooperative. Good eye contact. Appropriate mood and affect. CBCD WBC 6.2 K/mm3 (4.0-10.0) 10/17/17 17:46 RBC 3.31 M/mm3 (3.60-5.2) L 10/17/17 17:46 Hgb 10.3 GM/dL (10.7-15.3) L D 10/17/17 17:46 Hct 30.8 % (32.4-45.2) L 10/17/17 17:46 MCV 93.1 fl (80-96) 10/17/17 17:46 MCHC 33.5 g/dl (32.0-36.0) 10/17/17 17:46 RDW 16.2 % (11.6-15.6) H 10/17/17 17:46 Plt Count 296 K/MM3 (134-434) 10/17/17 17:46 MPV 8.0 fl (7.5-11.1) 10/17/17 17:46 CMP Sodium 136 mmol/L (136-145) 10/18/17 06:15 Potassium 5.7 mmol/L (3.5-5.1) H 10/18/17 06:15 Chloride 104 mmol/L (98-107) 10/18/17 06:15 Carbon Dioxide 17 mmol/L (21-32) L 10/18/17 06:15 Anion Gap 15 (8-16) 10/18/17 06:15 BUN 74 mg/dL (7-18) H 10/18/17 06:15 Creatinine 10.5 mg/dL (0.55-1.02) H* 10/18/17 06:15 Creat Clearance w eGFR 4.04 (>60) 10/17/17 17:46 Random Glucose 105 mg/dL (74-106) 10/18/17 06:15 Calcium 9.3 mg/dL (8.5-10.1) 10/18/17 06:15 Total Bilirubin 0.6 mg/dL (0.2-1.0) D 10/17/17 17:46 AST 12 U/L (15-37) L 10/17/17 17:46 ALT 16 U/L (12-78) 10/17/17 17:46 Alkaline Phosphatase 95 U/L (45-117) 10/17/17 17:46 Total Protein 6.5 g/dl (6.4-8.2) 10/17/17 17:46 Albumin 2.9 g/dl (3.4-5.0) L 10/17/17 17:46 Current Medications Generic Name Dose Route Start Last Admin Trade Name Freq PRN Reason Stop Dose Admin Allopurinol 100 mg 10/19/17 10:00 Zyloprim - PO DAILY [facility] Heparin Sodium (Porcine) 5,000 unit 10/18/17 14:00 Heparin - SQ TID [facility] Sodium Chloride 1,000 mls @ 75 mls/hr 10/18/17 12:02 Normal Saline - IV ASDIR [facility] Insulin Aspart 1 vial 10/18/17 16:30 Novolog Vial Sliding Scale - SQ TIDAC [facility] Protocol Losartan Potassium 100 mg 10/19/17 10:00 Cozaar - PO DAILY [facility] Metoprolol Tartrate 50 mg 10/18/17 22:00 Lopressor - PO BID KYLIE Nifedipine 30 mg 10/18/17 22:00 Procardia Xl - PO BID [facility] Ondansetron HCl 4 mg 10/18/17 12:02 Zofran Injection IVPUSH Q6H PRN NAUSEA AND/OR VOMITING Home Medications Medication Instructions Recorded Allopurinol [Zyloprim -] 100 mg PO DAILY 09/13/17 Glipizide 5 mg PO DAILY 02/19/17 Losartan Potassium 100 mg PO DAILY 02/19/17 Metoprolol Tartrate 50 mg PO BID 02/19/17 Nifedipine ER [Procardia Xl -] 30 mg PO BID 02/19/17 Calcium Acetate [Calphron] 3 tab PO TID 10/17/17 Folic Acid/B Cplx/C/Selen/Zinc 1 each PO DAILY 10/17/17 [Dialyvite 3,000 Tablet] Lactobacillus Acidophilus 1 each PO DAILY 10/17/17 [Probiotic] 72F with multiple medical problems presents due to failed dialysis access and unable to be dialyzed. failed dialysis access/ESRD on HD: Dr. Leon to see patient tomorrow and repair Dr. Santana to see patient tomorrow for dialysis after catheter repair failed cath-sylvie trial NPO past midnight for OR HTN: Restart Home meds-Metoprolol Losartan Procardia Monitor BP DM: Hold glipizide ISS fingersticks ACHS Gout: Restart allopurinol
--- NOTE | 2017-10-18 17:38 | DS ---
Physical Exam: SUBJECTIVE: Patient seen and examined Patient is comfortable , had her dialysis without any complications. wants to go home. OBJECTIVE: Vital Signs Temperature 97.8 F 10/18/17 13:25 Pulse Rate 76 10/18/17 16:35 Respiratory Rate 18 10/18/17 16:35 Blood Pressure 103/71 10/18/17 16:35 O2 Sat by Pulse Oximetry (%) 95 10/18/17 12:45 PHYSICAL EXAM GENERAL: The patient is awake, alert, and fully oriented, in no acute distress. very nice lady. HEAD: Normal with no signs of trauma. EYES: PERRL, extraocular movements intact, sclera anicteric, conjunctiva clear. ENT: Ears normal, nares patent, oropharynx clear without exudates, moist mucous membranes. NECK: Trachea midline, full range of motion, supple. LUNGS:RU chest the dialysis catheter covered with a tegaderm, Breath sounds equal, clear to auscultation bilaterally, no wheezes, no crackles, no accessory muscle use. HEART: Regular rate and rhythm, S1, S2 without murmur, rub or gallop. ABDOMEN: Soft, nontender, nondistended, normoactive bowel sounds, no guarding, no rebound, no hepatosplenomegaly, no masses. EXTREMITIES: 2+ pulses, warm, well-perfused, no edema. NEUROLOGICAL: Cranial nerves II through XII grossly intact. Normal speech, gait not observed. PSYCH: Normal mood, normal affect. SKIN: Warm, dry, normal turgor, no rashes or lesions noted. LABS CBCD WBC 6.2 K/mm3 (4.0-10.0) 10/17/17 17:46 RBC 3.31 M/mm3 (3.60-5.2) L 10/17/17 17:46 Hgb 10.3 GM/dL (10.7-15.3) L D 10/17/17 17:46 Hct 30.8 % (32.4-45.2) L 10/17/17 17:46 MCV 93.1 fl (80-96) 10/17/17 17:46 MCHC 33.5 g/dl (32.0-36.0) 10/17/17 17:46 RDW 16.2 % (11.6-15.6) H 10/17/17 17:46 Plt Count 296 K/MM3 (134-434) 10/17/17 17:46 MPV 8.0 fl (7.5-11.1) 10/17/17 17:46 CMP Sodium 136 mmol/L (136-145) 10/18/17 06:15 Potassium 5.7 mmol/L (3.5-5.1) H 10/18/17 06:15 Chloride 104 mmol/L (98-107) 10/18/17 06:15 Carbon Dioxide 17 mmol/L (21-32) L 10/18/17 06:15 Anion Gap 15 (8-16) 10/18/17 06:15 BUN 74 mg/dL (7-18) H 10/18/17 06:15 Creatinine 10.5 mg/dL (0.55-1.02) H* 10/18/17 06:15 Creat Clearance w eGFR 4.04 (>60) 10/17/17 17:46 Random Glucose 105 mg/dL (74-106) 10/18/17 06:15 Calcium 9.3 mg/dL (8.5-10.1) 10/18/17 06:15 Total Bilirubin 0.6 mg/dL (0.2-1.0) D 10/17/17 17:46 AST 12 U/L (15-37) L 10/17/17 17:46 ALT 16 U/L (12-78) 10/17/17 17:46 Alkaline Phosphatase 95 U/L (45-117) 10/17/17 17:46 Total Protein 6.5 g/dl (6.4-8.2) 10/17/17 17:46 Albumin 2.9 g/dl (3.4-5.0) L 10/17/17 17:46 Current Medications Generic Name Dose Route Start Last Admin Trade Name Freq PRN Reason Stop Dose Admin Allopurinol 100 mg 10/19/17 10:00 Zyloprim - PO DAILY [facility] Heparin Sodium (Porcine) 5,000 unit 10/18/17 14:00 Heparin - SQ TID [facility] Sodium Chloride 1,000 mls @ 75 mls/hr 10/18/17 12:02 Normal Saline - IV ASDIR [facility] Insulin Aspart 1 vial 10/18/17 16:30 10/18/17 17:07 Novolog Vial Sliding Scale - SQ Not Given TIDAC [facility] Protocol Losartan Potassium 100 mg 10/19/17 10:00 Cozaar - PO DAILY [facility] Metoprolol Tartrate 50 mg 10/18/17 22:00 Lopressor - PO BID [facility] Nifedipine 30 mg 10/18/17 22:00 Procardia Xl - PO BID [facility] Ondansetron HCl 4 mg 10/18/17 12:02 Zofran Injection IVPUSH Q6H PRN NAUSEA AND/OR VOMITING Home Medications Medication Instructions Recorded Allopurinol [Zyloprim -] 100 mg PO DAILY 02/19/17 Glipizide 5 mg PO DAILY 02/19/17 Losartan Potassium 100 mg PO DAILY 02/19/17 Metoprolol Tartrate 50 mg PO BID 02/19/17 Nifedipine ER [Procardia Xl -] 30 mg PO BID 02/19/17 Calcium Acetate [Calphron] 3 tab PO TID 10/17/17 Folic Acid/B Cplx/C/Selen/Zinc 1 each PO DAILY 10/17/17 [Dialyvite 3,000 Tablet] Lactobacillus Acidophilus 1 each PO DAILY 10/17/17 [Probiotic] HOSPITAL COURSE: Date of Admission:10/17/17 Date of Discharge: 10/18/17 Patient is a 72F with multiple medical problems presents due to failed dialysis access and unable to be dialyzed. had dialysis catheter placed by Dr.Nirav Leon, had dialysis today successfully , wi;; discharge the patient home without any complications. will follow with in the dialysis center until she goes back to [place] on the of this month. HTN: continue home meds. DM: continue glipizide ; gout:continue allopurinol. discharge time 35 minutes. Minutes to complete discharge: 35 Discharge Summary Reason For Visit: DIALYSIS CATHETER CLOT FAILURE Current Active Problems DM2 (diabetes mellitus, type 2) (Acute) Dialysis catheter clot or failure (Acute) ESRD (end stage renal disease) (Acute) Hypertension (Acute) Condition: Stable - Instructions Diet, Activity, Other Instructions: renal, diabetic diet. follow with your PMD within a week. Follow with your scheduled dialysis. Referrals: Mahnaz Ambriz MD [Staff Physician] - Sarabjit Leon MD [Staff Physician] - Disposition: HOME - Home Medications Comprehensive Discharge Medication List: Ambulatory Orders Allopurinol [Zyloprim -] 100 mg PO DAILY 02/19/17 Glipizide 5 mg PO DAILY 02/19/17 Losartan Potassium 100 mg PO DAILY 02/19/17 Metoprolol Tartrate 50 mg PO BID 02/19/17 Nifedipine ER [Procardia Xl -] 30 mg PO BID 02/19/17 Calcium Acetate [Calphron] 3 tab PO TID 10/17/17 Folic Acid/B Cplx/C/Selen/Zinc [Dialyvite 3,000 Tablet] 1 each PO DAILY Lactobacillus Acidophilus [Probiotic] 1 each PO DAILY 10/17/17 This patient is new to me today: Yes Date on this admission: 10/18/17 Emergency Visit: Yes ED Registration Date: 10/17/17 Care time: The patient presented to the Emergency Department on the above date and was hospitalized for further evaluation of their emergent condition. Critical Care patient: No - Discharge Referral Referred to [facility] No
[2017-10-18 18:47] VITALS: BP 130/80; PULSE 89; TEMP 98.7
[2017-10-18] MEDS ORDERED: METOPROLOL TARTRATE 50 MG TABLET (FP) PO SCH (22:00)
[2017-10-18] MEDS ORDERED: NIFEdipine E.R. 30 MG TABLET (FP) PO SCH (22:00)
[2017-10-19] MEDS ORDERED: LOSARTAN POTASSIUM 50 MG TABLET (FP) PO SCH (10:00)
[2017-10-19] MEDS ORDERED: ALLOPURINOL 100 MG TABLET (FP) PO SCH (10:00)
[2017-10-21 00:06] LABS: HBSAG SCREEN Negative (Negative); HEP A AB, IGM Negative (Negative); HEP B CORE AB, TOT Negative (Negative)
--- NOTE | 2017-10-22 15:26 | PATH ---
Surgical Pathology Report Patient Name: SAMMY WHEELER Med. Rec. #: [id number] /Age/Gender: 1945 (Age: 72) / F Account: [id number] Location: [facility] MED/SURG Taken: 10/18/2017 Received: 10/20/2017 Reported: 10/22/2017 Physicians: Sarabjit Leon Specimen(s) Received PERMA CATHETER Clinical History Malfunctioning permacath Final Diagnosis PERMACATHETER: CONSISTENT WITH PERMACATHETER. GROSS EXMINATION ONLY. Electronically Signed Jerman Sutton M.D. Gross Description Received fresh labeled "permacatheter," is a 35.5 cm in length double lumen catheter. No soft tissue is present. No sections are submitted, gross only. /10/21/201710/21/2017
== END 2017-10-18 18:47 | disposition home or self-care (01) | DRG 314 ==
LOC: JER 17:12 → JERBED 19:51 → OBSVTOIN 21:14 → J8W 23:54
PROVIDERS: ADMIT Internal Medicine; ATTEND Internal Medicine
PROC: 05PY33Z Removal of Infusion Device from Upper Vein, Percutaneous Approach (ICD-10-PCS; principal; 2017-10-17)
PROC: 05HM33Z Insertion of Infusion Device into Right Internal Jugular Vein, Percutaneous Approach (ICD-10-PCS; 2017-10-17)
PROC: B513ZZA Fluoroscopy of Right Jugular Veins, Guidance (ICD-10-PCS; 2017-10-17)
DX: T82.591A Other mechanical complication of surgically created arteriovenous shunt, initial encounter (principal); N18.6 End stage renal disease; I12.0 Hypertensive chronic kidney disease with stage 5 chronic kidney disease or end stage renal disease; Y84.1 Kidney dialysis as the cause of abnormal reaction of the patient, or of later complication, without mention of misadventure at the time of the procedure; E11.22 Type 2 diabetes mellitus with diabetic chronic kidney disease; E87.5 Hyperkalemia; E78.00 Pure hypercholesterolemia, unspecified; M10.9 Gout, unspecified; Z99.2 Dependence on renal dialysis
CPT/HCPCS: 36415; 71045-TC-FY; 76000-TC-FY; 80048; 80053; 82962; 85025; 85610; 85730; 86704; 86706; 86708; 86850; 86900; 86901; 87340; 88300-TC; 93005; 93010; 94760; 99284-25; G0378; J0885; J1644; J2997